=== PATIENT | male | born 1945 | race Caucasian/White ===

== ENCOUNTER 2016-07-04 14:37 | Outpatient (CLI) | payer MEDICARE | END 2016-07-04 14:38 | disposition home or self-care (01) | DX: R59.9 Enlarged lymph nodes, unspecified (principal); R41.82 Altered mental status, unspecified ==

== ENCOUNTER 2016-07-14 14:09 | Outpatient (CLI) | payer MEDICARE ==
[2016-07-14] MEDS ORDERED: GADOBUTROL 10 MMOL/10 ML VIAL IVP ONE (15:35)
== END 2016-07-14 14:10 | disposition home or self-care (01) ==
DX: R41.82 Altered mental status, unspecified (principal); R51 Headache; R13.0 Aphagia
CPT/HCPCS: 70553; A9585

== ENCOUNTER 2016-07-20 10:52 | Outpatient (CLI) | payer MEDICARE | END 2016-07-20 10:53 | disposition home or self-care (01) | DX: R79.82 Elevated C-reactive protein (CRP) (principal); Z11.59 Encounter for screening for other viral diseases; G31.84 Mild cognitive impairment of uncertain or unknown etiology ==

== ENCOUNTER 2017-08-01 09:10 | Outpatient (CLI) | payer MEDICARE ==
[2017-08-01 17:59] LABS: HB2 TOTAL 17.4 g/dL; HEMOGLOBIN A1C 0.67 g/dL; HEMOGLOBIN A1C % 5.7 % (4.6-6.2)
[2017-08-01 18:10] LABS: BASOPHILS % (AUTO) 0.7 %; EOSINOPHILS # (AUTO) 0.3 10^3/uL (0.0-0.7); EOSINOPHILS % (AUTO) 5.3 %; HGB - HEMOGLOBIN 15.9 g/dL (14.0-18.0); LYMPHOCYTES # (AUTO) 2.6 10^3/uL (1.5-3.5); LYMPHOCYTES % (AUTO) 43.9 %; MEAN CORPUSCULAR HEMOGLOBIN 30.8 pg (27.0-31.0); MEAN CORPUSCULAR HGB CONC 33.3 g/dL (32.0-36.0); MEAN CORPUSCULAR VOLUME 92.5 fL (80.0-94.0); MEAN PLATELET VOLUME 8.5 fL (7.4-11.4); MONOCYTES # (AUTO) 0.5 10^3/uL (0.0-1.0); MONOCYTES % (AUTO) 8.8 %; NEUTROPHILS # (AUTO) 2.4 10^3/uL (1.5-6.6); NEUTROPHILS % (AUTO) 41.3 %; PLT - PLATELET COUNT 251 10^3/uL (130-450); RED BLOOD COUNT 5.16 10^6/uL (4.70-6.10); RED CELL DISTRIBUTION WIDTH 13.3 % (12.0-15.0); WHITE BLOOD COUNT 5.9 x10^3/uL (4.8-10.8)
[2017-08-01 18:14] LABS: ALBUMIN 4.1 g/dL (3.2-5.5); ALBUMIN/GLOBULIN RATIO 1.4 (1.0-2.2); ALKALINE PHOSPHATASE 68 IU/L (42-121); ALT ALANINE AMINOTRANSFERASE 33 IU/L (10-60); AST ASPARTATE AMINOTRANSFERASE 28 IU/L (10-42); BILIRUBIN,TOTAL 1.1 mg/dL (0.2-1.0); BUN - BLOOD UREA NITROGEN 13 mg/dL (6-20); CALCIUM 8.8 mg/dL (8.5-10.3); CARBON DIOXIDE - CO2 27 mmol/L (21-32); CHLORIDE 100 mmol/L (101-111); CHOL/HDL RATIO 4.1 (<5.0); CHOLESTEROL 172 mg/dL; CREATININE 0.9 mg/dL (0.6-1.2); GFR - MDRD 83 (>89); GLUCOSE 113 mg/dL (70-100); HDL CHOLESTEROL 42 mg/dL; LDL CHOLESTEROL,CALCULATED 94 mg/dL; LDL/HDL RATIO 2.2 (<3.6); SODIUM 135 mmol/L (135-145); TOTAL PROTEIN 7.1 g/dL (6.7-8.2); VLDL CHOLESTEROL 36 mg/dL
== END 2017-08-01 09:11 | disposition home or self-care (01) ==
LOC: LAB.F 09:10
PROVIDERS: ATTEND Physician Assistant Medical
DX: R73.9 Hyperglycemia, unspecified (principal); I10 Essential (primary) hypertension; E78.2 Mixed hyperlipidemia; F41.9 Anxiety disorder, unspecified; F32.9 Major depressive disorder, single episode, unspecified; Z12.5 Encounter for screening for malignant neoplasm of prostate; Z79.899 Other long term (current) drug therapy
CPT/HCPCS: 36415; 80053; 80061; 83036; 84443; 85025; G0103; 83721; 84153

== ENCOUNTER 2022-10-18 10:07 | Outpatient (CLI) | payer MEDICARE ==
--- NOTE | 2022-10-18 16:48 | XRAY Report ---
PROCEDURE: Foot 3 View RT INDICATIONS: RT FOOT PAIN TECHNIQUE: 3 views of the foot were acquired. COMPARISON: None. FINDINGS: Bones: No fractures or dislocations. No suspicious bony lesions. Hardware within the distal tibia and fibula. Periareolar osteophyte formation at the first metatarsophalangeal joint. Soft tissues: No suspicious soft tissue calcifications or masses. IMPRESSION: 1. Osteoarthritis. 2. Postsurgical sequelae. 3. No acute fracture. No osseous lesion. If symptoms and/or clinical suspicion for pathology continue , further assessment with repeat plain films, or advanced imaging (e.g., CT, MRI, or bone scan) is re commended for further assessment. Reviewed by: Brady De La Rosa MD on 10/18/2022 4:47 PM PDT Approved by: Brady De La Rosa MD on 10/18/2022 4:47 PM PDT Station ID: [id number]
== END 2022-10-18 10:08 | disposition home or self-care (01) ==
LOC: DI 10:07
PROVIDERS: ATTEND Podiatrist
DX: M19.071 Primary osteoarthritis, right ankle and foot (principal)